=== PATIENT | female | born 1990 | race Caucasian/White ===

== ENCOUNTER 2021-01-24 03:36 | Emergency (ER) | payer MEDICAID ==
[~2021-01-24] VITALS: Ht 165.1 cm; Wt 72.6 kg
[2021-01-24 03:36] VITALS: BP 133/84
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
[2021-01-24] MEDS ORDERED: ACETAMINOPHEN EXTRA STRENGTH 500 MG TAB PO ONE (03:50)
[2021-01-24 04:20] VITALS: BP 133/84
--- NOTE | 2021-01-24 04:20 | NUR ---
PATIENT BIB [place] [employer]. PATIENT EXAMINED BY DR. VERGARA. PATIENT MEDICALLY CLEARED AND RELEASED IN CUSTODY IN STABLE CONDITION. ORIGINAL PRE-BOOK FORM GIVEN TO [employer] #[id number].
== END 2021-01-24 04:20 ==
LOC: MED 03:36
DX: R07.89 Other chest pain (principal); Z02.89 Encounter for other administrative examinations; V98.8XXA Other specified transport accidents, initial encounter; Y93.89 Activity, other specified; Y92.89 Other specified places as the place of occurrence of the external cause; Y99.8 Other external cause status
CPT/HCPCS: 71045; 99283